=== PATIENT | female | born 2000 | race Caucasian/White ===

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

== ENCOUNTER 2020-01-08 22:20 | Emergency (ER) | payer BC, MEDICAID ==
[2020-01-08 22:32] VITALS: BP 144/89; PULSE 112
--- NOTE | 2020-01-08 22:40 | EDM.PDOC ---
ED HPI GENERAL MEDICAL PROBLEM - General Chief Complaint: ENT Problem Stated Complaint: TEETH PAIN Time Seen by Provider: 01/08/20 22:32 Source of Information: Reports: Patient, RN Notes Reviewed History Limitations: Reports: No Limitations - History of Present Illness INITIAL COMMENTS - FREE TEXT/NARRATIVE: 19-year-old female presents emergency department a complaint of dental pain, she admits to having cavities and poor dentition this particular tooth has been bothering her for the last couple days she has not had any fevers that is making it difficult for her to sleep at eat Right Face/Facial Pain Score (Numeric/FACES): 8 - Related Data Allergies Allergy/AdvReac Type Severity Reaction Status Date / Time doxycycline Allergy Other Verified 08/14/19 21:13 Home Meds: Home Meds Albuterol Sulfate [Proair Hfa] 2 puff IH Q4H PRN 09/15/15 [History] Past Medical History Gastrointestinal History: Reports: Other (See Below) Other Gastrointestinal History: Nausea ulcers Musculoskeletal History: Reports: Fracture Other Musculoskeletal History: Bilateral leg fractures, right ankle fracture, right wrist fracture, right 5th digit fracture Neurological History: Reports: Migraines Psychiatric History: Reports: ADHD, Anxiety, Depression Dermatologic History: Reports: Other (See Below) Other Dermatologic History: skin pigmentation - Past Surgical History GI Surgical History: Reports: EGD Musculoskeletal Surgical History: Reports: None Social & Family History - Tobacco Use Smoking Status *Q: Never Smoker - Caffeine Use Caffeine Use: Reports: Soda ED ROS ENT - Review of Systems Review Of Systems: See Below Constitutional: Denies: Fever, Chills HEENT: Reports: Dental Pain Respiratory: Reports: No Symptoms ED EXAM, ENT - Physical Exam Exam: See Below Text/Narrative:: Mouth mucosa is moist and pink no erythema or exudate known soft palate tongue is midline uvula is midline tooth #31 is severely carried it is tender around that tooth, neck palpation none on appreciate any lymphadenopathy but she does have some tenderness over the jaw near tooth #31 on the right side Exam Limited By: No Limitations General Appearance: Alert, WD/WN, No Apparent Distress Course - Vital Signs Last Recorded V/S: Last Vital Signs Temp 97.6 F 01/08/20 22:30 Pulse 112 H 01/08/20 22:30 Resp 16 01/08/20 22:30 BP 144/89 H 01/08/20 22:30 Pulse Ox 99 01/08/20 22:30 Departure - Departure Time of Disposition: 22:39 Disposition: Home, Self-Care 01 Condition: Fair Clinical Impression: Dental abscess - Discharge Information Instructions: Dental Abscess, [id number] Referrals: PCP,None [Primary Care Provider] - Additional Instructions: Take full course of antibiotics, use Tylenol or Motrin for baseline pain control hydrocodone for breakthrough pain not to exceed 4000 mg Tylenol 24-hour period, please try and find a dentist in town that is doing emergent consultation Sepsis Event Note - Evaluation Sepsis Screening Result: No Definite Risk - Focused Exam Vital Signs: Vital Signs Temp Pulse Resp BP Pulse Ox 01/08/20 22:30 97.6 F 112 H 16 144/89 H 99 Date Exam was Performed: 01/08/20 Time Exam was Performed: 22:37 - Assessment/Plan Plan: Assessment Acuity = acute Site and laterality = dental abscess tooth #31 Etiology = dental caries Manifestations = pain Location of injury = Home Lab values = none Plan Elected to treat empirically amoxicillin 500 mg p.o. 3 times daily x10 days combination with hydrocodone 5/325 1 tab p.o. 3 times daily PRN total #10 she will continue to find a dentist that does have emergency services she can be evaluated This note was dictated using [employer] voice recognition software please call with any questions on syntax or grammar.
== END 2020-01-08 22:44 | disposition home or self-care (01) ==
LOC: JP.ED 22:20
DX: K04.7 Periapical abscess without sinus (principal); K02.9 Dental caries, unspecified; Z88.1 Allergy status to other antibiotic agents
CPT/HCPCS: 99282

== ENCOUNTER 2020-02-04 22:52 | Emergency (ER) | payer MEDICAID ==
[2020-02-04 23:05] VITALS: BP 157/89; PULSE 121
[2020-02-04] MEDS ORDERED: Acetaminophen 325 MG Tab PO ONE (23:14)
[2020-02-04] MEDS ORDERED: Cyclobenzaprine 10 MG Tab PO ONE (23:14)
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
--- NOTE | 2020-02-05 10:12 | CR ---
Shoulder Comp Rt CLINICAL HISTORY: Pain FINDINGS: There is no acute fracture or dislocation in the right shoulder. Articular surfaces are smooth. Impression: Negative
== END 2020-02-04 23:52 | disposition home or self-care (01) ==
LOC: JP.ED 22:52
DX: S43.401A Unspecified sprain of right shoulder joint, initial encounter (principal); F17.210 Nicotine dependence, cigarettes, uncomplicated; Z88.8 Allergy status to other drugs, medicaments and biological substances; Z79.899 Other long term (current) drug therapy; V49.9XXA Car occupant (driver) (passenger) injured in unspecified traffic accident, initial encounter
CPT/HCPCS: 73030; 99283; A9270

== ENCOUNTER 2020-07-12 03:16 | Emergency (ER) | payer MEDICAID ==
[2020-07-12 03:35] VITALS: BP 133/79; PULSE 104
[2020-07-12] MEDS ORDERED: Ondansetron 4 MG Tab.DIS PO ONE (04:04)
--- NOTE | 2020-07-12 04:06 | EDM.PDOC ---
ED HPI GENERAL MEDICAL PROBLEM - General Chief Complaint: Gastrointestinal Problem Stated Complaint: THROWING UP BLOOD Time Seen by Provider: 07/12/20 03:58 Source of Information: Reports: Patient, Family, RN Notes Reviewed History Limitations: Reports: No Limitations - History of Present Illness INITIAL COMMENTS - FREE TEXT/NARRATIVE: 19-year-old female presents emergency department with a complaint of nausea and vomiting, she has a history of peptic ulcer disease she states over the last 24 hours she has had some emesis with bright red blood, she states her last emesis was about an hour ago it has decreased in volume. A couple years ago she had an event similar to this was prescribed an antacid and amitriptyline which she states did help Right Middle Abdomen Pain Score (Numeric/FACES): 10 - Related Data Allergies Allergy/AdvReac Type Severity Reaction Status Date / Time doxycycline Allergy Other Verified 02/04/20 23:03 Home Meds: Home Meds Amitriptyline [Elavil] 10 mg PO BEDTIME #30 tab 07/12/20 [Rx] Ondansetron [Zofran ODT] 4 mg PO Q6H PRN #10 tab.dis 07/12/20 [Rx] Pantoprazole Sodium [Protonix] 20 mg PO DAILY #30 tablet.dr 07/12/20 [Rx] Past Medical History Gastrointestinal History: Reports: Other (See Below) Other Gastrointestinal History: Nausea ulcers Musculoskeletal History: Reports: Fracture Other Musculoskeletal History: Bilateral leg fractures, right ankle fracture, right wrist fracture, right 5th digit fracture Neurological History: Reports: Migraines Psychiatric History: Reports: ADHD, Anxiety, Depression Dermatologic History: Reports: Other (See Below) Other Dermatologic History: skin pigmentation - Past Surgical History GI Surgical History: Reports: EGD Musculoskeletal Surgical History: Reports: None Social & Family History - Tobacco Use Tobacco Use Status *Q: Current Every Day Tobacco User Years of Tobacco use: 3 Packs/Tins Daily: 1 - Caffeine Use Caffeine Use: Reports: None - Recreational Drug Use Recreational Drug Use: No ED ROS GENERAL - Review of Systems Review Of Systems: See Below Constitutional: Reports: No Symptoms Respiratory: Reports: No Symptoms Cardiovascular: Reports: No Symptoms GI/Abdominal: Reports: Abdominal Pain, Hematemesis, Nausea, Vomiting ED EXAM, GI/ABD - Physical Exam Exam: See Below Exam Limited By: No Limitations General Appearance: Alert, WD/WN, No Apparent Distress Respiratory/Chest: No Respiratory Distress, Lungs Clear, Normal Breath Sounds, No Accessory Muscle Use, Chest Non-Tender Cardiovascular: Regular Rate, Rhythm, No Murmur GI/Abdominal Exam: Normal Bowel Sounds, Soft, Non-Tender Course - Vital Signs Last Recorded V/S: Last Vital Signs Temp 98.6 F 07/12/20 03:33 Pulse 104 H 07/12/20 03:33 Resp 16 07/12/20 03:33 BP 133/79 07/12/20 03:33 Pulse Ox 98 07/12/20 03:33 - Orders/Labs/Meds Labs: Laboratory Tests 07/12/20 07/12/20 Range/Units 04:10 04:10 WBC 9.8 (4.5-11.0) K/uL RBC 4.50 (3.30-5.50) M/uL Hgb 13.7 (12.0-15.0) g/dL Hct 40.7 (36.0-48.0) % MCV 90 (80-98) fL MCH 30 (27-31) pg MCHC 34 (32-36) % Plt Count 237 (150-400) K/uL Neut % (Auto) 70 H (36-66) % Lymph % (Auto) 19 L (24-44) % Day % (Auto) 10 H (2-6) % Eos % (Auto) 0 L (2-4) % Baso % (Auto) 0 (0-1) % Sodium 138 L (140-148) mmol/L Potassium 3.5 L (3.6-5.2) mmol/L Chloride 100 (100-108) mmol/L Carbon Dioxide 24 (21-32) mmol/L Anion Gap 17.5 H (5.0-14.0) mmol/L BUN 7 (7-18) mg/dL Creatinine 0.8 (0.6-1.0) mg/dL Est Cr Clr Drug Dosing 105.89 mL/min Estimated GFR (MDRD) > 60 (>60) Glucose 104 (74-106) mg/dL Calcium 9.5 (8.5-10.1) mg/dL Meds: Medications Discontinued Medications Generic Name Dose Route Start Last Admin Trade Name Freq PRN Reason Stop Dose Admin Ondansetron HCl 4 mg 07/12/20 04:04 07/12/20 04:11 Zofran Odt PO 07/12/20 04:05 4 mg ONETIME ONE Administration Departure - Departure Time of Disposition: 04:41 Disposition: Home, Self-Care 01 Condition: Fair Clinical Impression: Hematemesis of unknown cause - Discharge Information Prescriptions: Amitriptyline [Elavil] 10 mg PO BEDTIME #30 tab Pantoprazole Sodium [Protonix] 20 mg PO DAILY #30 tablet. Ondansetron [Zofran ODT] 4 mg PO Q6H PRN #10 tab.dis PRN Reason: Nausea Instructions: Gastrointestinal Bleeding, [id number] Referrals: PCP,None [Primary Care Provider] - Forms: ED Department Discharge Additional Instructions: Try the Zofran as needed for nausea and vomiting symptoms, restart your medications of amitriptyline a prescription is also provided for Protonix which will help suppress the acid in the stomach, recommend follow-up with your primary care in the next 3 to 5 days for reevaluation please consider another EGD for further evaluation, call or return to the emergency department worsening of symptoms Sepsis Event Note (ED) - Evaluation Sepsis Screening Result: No Definite Risk - Focused Exam Vital Signs: Vital Signs Temp Pulse Resp BP Pulse Ox 07/12/20 03:33 98.6 F 104 H 16 133/79 98 - Assessment/Plan Plan: Assessment Acuity = acute Site and laterality = hematoemesis Etiology = probable underlying peptic ulcer disease Manifestations = nausea and vomiting Location of injury = Home Lab values = CBC BMP within normal limits Plan No emesis while in the emergency department prescription written for Zofran ODT 1 tab p.o. 3 times daily as needed total #10, amitriptyline 10 mg p.o. nightly total #30 Protonix 20 mg p.o. daily total #30 her follow-up with her primary care in 3 to 5 days if no improvement This note was dictated using TVTY voice recognition software please call with any questions on syntax or grammar.
== END 2020-07-12 04:47 | disposition home or self-care (01) ==
LOC: JP.ED 03:16
DX: K92.0 Hematemesis (principal); R10.9 Unspecified abdominal pain; F17.210 Nicotine dependence, cigarettes, uncomplicated; Z88.1 Allergy status to other antibiotic agents; Z79.899 Other long term (current) drug therapy
CPT/HCPCS: 36415; 80048; 85025; 99284; A9270

== ENCOUNTER 2020-07-13 15:03 | Emergency (ER) | payer MEDICAID ==
[2020-07-13 16:03] VITALS: BP 122/74; PULSE 78
[2020-07-13] MEDS ORDERED: LORazepam 2 MG/ML SDV IVPUSH ONE (16:37)
[2020-07-13] MEDS ORDERED: Haloperidol Lactate 5 MG/ML SDV IVPUSH ONE (16:37)
--- NOTE | 2020-07-13 16:57 | EDM.PDOC ---
ED HPI GENERAL MEDICAL PROBLEM - General Chief Complaint: Gastrointestinal Problem Stated Complaint: VOMITTING Time Seen by Provider: 07/13/20 16:15 Source of Information: Reports: Patient History Limitations: Reports: No Limitations - History of Present Illness INITIAL COMMENTS - FREE TEXT/NARRATIVE: 19-year-old female who has a long history of recurring nausea and vomiting which was controlled with amitriptyline for a year but she stopped taking it a couple years ago. She was in less than 48 hours ago with persistent vomiting and hematemesis. Her work-up was negative, she responded to some IV medications. She has taken 2 doses of amitriptyline but still is having persistent nausea with occasional emesis. No fevers or chills, some vague upper abdominal discomfort, no radiation to the back. Onset: Sudden (Symptoms started fairly suddenly 3 days ago) Quality: Reports: Ache (Aching in her upper abdomen) Associated Symptoms: Reports: Nausea/Vomiting. Denies: Chest Pain, Cough - Related Data Allergies Allergy/AdvReac Type Severity Reaction Status Date / Time doxycycline Allergy Other Verified 07/13/20 15:51 Home Meds: Home Meds Amitriptyline [Elavil] 10 mg PO BEDTIME #30 tab 07/12/20 [Rx] Ondansetron [Zofran ODT] 4 mg PO Q6H PRN #10 tab.dis 07/12/20 [Rx] Pantoprazole Sodium [Protonix] 20 mg PO DAILY #30 tablet. 07/12/20 [Rx] Past Medical History - Past Health History Medical/Surgical History: Denies Medical/Surgical History Gastrointestinal History: Reports: Other (See Below) Other Gastrointestinal History: Nausea ulcers Musculoskeletal History: Reports: Fracture Other Musculoskeletal History: Bilateral leg fractures, right ankle fracture, right wrist fracture, right 5th digit fracture Neurological History: Reports: Migraines Psychiatric History: Reports: ADHD, Anxiety, Depression Dermatologic History: Reports: Other (See Below) Other Dermatologic History: skin pigmentation - Past Surgical History GI Surgical History: Reports: EGD Musculoskeletal Surgical History: Reports: None Social & Family History - Tobacco Use Tobacco Use Status *Q: Current Every Day Tobacco User Years of Tobacco use: 2 Packs/Tins Daily: 0.5 - Caffeine Use Caffeine Use: Reports: None ED ROS GENERAL - Review of Systems Review Of Systems: See Below Constitutional: Reports: Malaise. Denies: Fever, Chills HEENT: Reports: No Symptoms Respiratory: Denies: Shortness of Breath, Cough Cardiovascular: Denies: Chest Pain GI/Abdominal: Reports: Abdominal Pain (Mild upper abdominal pain), Hematemesis, Nausea, Vomiting. Denies: Constipation, Diarrhea Skin: Reports: No Symptoms Neurological: Denies: Dizziness, Headache Psychiatric: Reports: Anxiety ED EXAM, GI/ABD - Physical Exam Exam: See Below Exam Limited By: No Limitations General Appearance: Alert, No Apparent Distress (Looks uncomfortable but not distressed, not actively vomiting at this time) Eyes: Bilateral: Normal Appearance Head: Atraumatic Respiratory/Chest: No Respiratory Distress, Lungs Clear Cardiovascular: Regular Rate, Rhythm GI/Abdominal Exam: Normal Bowel Sounds, Soft, Other (No significant focal tenderness to palpation) Extremities: Normal Inspection. No: Pedal Edema Neurological: Alert, Oriented Psychiatric: Flat Affect Skin Exam: Warm, Dry Course - Vital Signs Last Recorded V/S: Last Vital Signs Temp 98.4 F 07/13/20 16:00 Pulse 78 07/13/20 16:00 Resp 14 07/13/20 16:00 BP 122/74 07/13/20 16:00 Pulse Ox 98 07/13/20 16:00 - Orders/Labs/Meds Meds: Medications Discontinued Medications Generic Name Dose Route Start Last Admin Trade Name Nay PRN Reason Stop Dose Admin Haloperidol Lactate 2.5 mg 07/13/20 16:37 07/13/20 16:59 Haldol IVPUSH 07/13/20 16:38 2.5 mg ONETIME ONE Administration Lorazepam 0.5 mg 07/13/20 16:37 07/13/20 17:00 Ativan IVPUSH 07/13/20 16:38 0.5 mg ONETIME ONE Administration - Re-Assessments/Exams Free Text/Narrative Re-Assessment/Exam: 07/13/20 17:38 This patient symptoms, especially when reviewed through past medical history combined with her past response to amitriptyline makes her diagnosis likely some type of cyclic vomiting syndrome. She was given 2.5 mg of IV Haldol and 0.5 mg of IV Ativan and felt much better. She was discharged with 10 additional doses of Ativan to use up to 3 times daily until this cycle breaks and her amitriptyline can start working again. She can return anytime if worsening despite treatment. Departure - Departure Time of Disposition: 17:28 Disposition: Home, Self-Care 01 Clinical Impression: Vomiting - Discharge Information Instructions: Nausea and Vomiting, Adult, [id number] Referrals: Walter Hayes MD [Primary Care Provider] - Forms: ED Department Discharge Care Plan Goals: Continue amitriptyline as prescribed, use Ativan every 6-8 hours for persistent nausea over the next 2 to 3 days. Stop Ativan when you are feeling better and increase diet and activity as tolerated. Return to the emergency room if worsening despite treatment. Sepsis Event Note (ED) - Evaluation Sepsis Screening Result: No Definite Risk - Focused Exam Vital Signs: Vital Signs Temp Pulse Resp BP Pulse Ox 07/13/20 16:00 98.4 F 78 14 122/74 98
== END 2020-07-13 17:28 | disposition home or self-care (01) ==
LOC: JP.ED 15:03
DX: R11.2 Nausea with vomiting, unspecified (principal); F32.9 Major depressive disorder, single episode, unspecified; F17.210 Nicotine dependence, cigarettes, uncomplicated; Z79.899 Other long term (current) drug therapy; Z88.1 Allergy status to other antibiotic agents
CPT/HCPCS: 96374; 96375; 99283; J1630; J2060

== ENCOUNTER 2020-12-06 14:04 | Emergency (ER) | payer BC, MEDICAID ==
[2020-12-06 14:46] VITALS: BP 132/62; PULSE 81
[2020-12-06] MEDS ORDERED: Ibuprofen 800 MG Tab PO ONE (15:34)
--- NOTE | 2020-12-06 15:40 | EDM.PDOC ---
ED HPI GENERAL MEDICAL PROBLEM - General Chief Complaint: Lower Extremity Injury/Pain Stated Complaint: RIGHT KNEE PAIN, HIT ON CAR DOOR Time Seen by Provider: 12/06/20 15:05 Source of Information: Reports: Patient History Limitations: Reports: No Limitations - History of Present Illness INITIAL COMMENTS - FREE TEXT/NARRATIVE: patient presents to the ER today due to R-knee pain. she states that she has chronic knee issues and today when getting out of the car she hit her knee on the car door. had initial pain/discomfort and difficulty walking due to pain. states pain is 8-9/10 when walking, at rest now 5/10 described as sharp in nature. she has not taken anything for pain or done any home care measures but came to the ER directly PMH--chronic nausea/GERD Meds--zofran, aciphex Allergies--doxy Tob--former EtOH/Drugs--denies current use LMP--24 November Onset: Today Right Knee Pain Score (Numeric/FACES): 8 - Related Data Allergies Allergy/AdvReac Type Severity Reaction Status Date / Time doxycycline Allergy Other Verified 12/06/20 14:28 Home Meds: Home Meds Amitriptyline [Elavil] 10 mg PO BEDTIME #30 tab 07/12/20 [Rx] Ondansetron [Zofran ODT] 4 mg PO Q6H PRN #10 tab.dis 07/12/20 [Rx] Pantoprazole Sodium [Protonix] 20 mg PO DAILY #30 tablet. 07/12/20 [Rx] Past Medical History - Past Health History Medical/Surgical History: Denies Medical/Surgical History Gastrointestinal History: Reports: Other (See Below) Other Gastrointestinal History: Nausea ulcers Musculoskeletal History: Reports: Fracture Other Musculoskeletal History: Bilateral leg fractures, right ankle fracture, right wrist fracture, right 5th digit fracture Neurological History: Reports: Migraines Psychiatric History: Reports: ADHD, Anxiety, Depression Dermatologic History: Reports: Other (See Below) Other Dermatologic History: skin pigmentation - Infectious Disease History Infectious Disease History: Reports: None - Past Surgical History GI Surgical History: Reports: EGD Musculoskeletal Surgical History: Reports: None Social & Family History - Tobacco Use Tobacco Use Status *Q: Former Tobacco User Years of Tobacco use: 2 Packs/Tins Daily: 0.5 Used Tobacco, but Quit: Yes Month/Year Tobacco Last Used: 1 month ago - Caffeine Use Caffeine Use: Reports: Soda - Recreational Drug Use Recreational Drug Use: No Review of Systems - Review of Systems Review Of Systems: See Below Constitutional: Reports: No Symptoms Eyes: Reports: No Symptoms Ears: Reports: No Symptoms Nose: Reports: No Symptoms Mouth/Throat: Reports: No Symptoms Respiratory: Reports: No Symptoms Cardiovascular: Reports: No Symptoms GI/Abdominal: Reports: No Symptoms Genitourinary: Reports: No Symptoms Musculoskeletal: Reports: Joint Pain (right knee pain--on knee cap) Skin: Reports: No Symptoms Neurological: Reports: No Symptoms Psychiatric: Reports: No Symptoms ED EXAM, GENERAL - Physical Exam Exam: See Below Exam Limited By: No Limitations General Appearance: Alert, WD/WN, No Apparent Distress Eye Exam: Bilateral Eye: EOMI, Normal Inspection, PERRL Ears: Normal External Exam Nose: Normal Inspection Head: Atraumatic, Normocephalic Neck: Normal Inspection, Supple, Non-Tender, Full Range of Motion Respiratory/Chest: No Respiratory Distress, Lungs Clear, Normal Breath Sounds, No Accessory Muscle Use Cardiovascular: Normal Peripheral Pulses, Regular Rate, Rhythm, No Edema, No Murmur Peripheral Pulses: 2+: Posterior Tibial (L), Posterior Tibial (R), Dorsalis Pedis (L), Dorsalis Pedis (R) GI/Abdominal: Normal Bowel Sounds, Soft (Female) Exam: Deferred Rectal (Female) Exam: Deferred Back Exam: Normal Inspection, Full Range of Motion Extremities: Normal Inspection, No Pedal Edema, Normal Capillary Refill, Other (tenderness to anterior right knee; no jointline tenderness/swelling/edema, no sup/inf knee swelling/edema; able to extend/flex right knee without restriction although she states it hurts at end ROM) Neurological: Alert, Oriented, Normal Cognition, No Motor/Sensory Deficits Psychiatric: Normal Affect, Normal Mood Skin Exam: Warm, Dry, Intact, Normal Color Course - Vital Signs Text/Narrative:: 1600--notified by MENTAL HEALTH AIDE that patient is ready to leave, declines x-ray at this time. due to leaving before evaluation complete no work excuse will be provided. must sign out against medical advise Last Recorded V/S: Last Vital Signs Temp 98.2 F 12/06/20 14:29 Pulse 81 12/06/20 14:29 Resp 16 12/06/20 14:29 BP 132/62 12/06/20 14:29 Pulse Ox 98 12/06/20 14:29 - Orders/Labs/Meds Orders: Active Orders 24 hr Category Date Time Status Knee 3V Rt [CR] Stat Exams 12/06/20 15:34 Ordered Meds: Medications Discontinued Medications Generic Name Dose Route Start Last Admin Trade Name Nay PRN Reason Stop Dose Admin Ibuprofen 800 mg 12/06/20 15:34 Ibuprofen 800 Mg Tab PO 12/06/20 15:35 ONETIME ONE Departure - Departure Time of Disposition: 16:01 Disposition: Against Medical Advice 07 Condition: Undetermined Clinical Impression: Right anterior knee pain, Contusion of knee, right, Left against medical advice - Discharge Information *PRESCRIPTION DRUG MONITORING PROGRAM REVIEWED*: Not Applicable *COPY OF PRESCRIPTION DRUG MONITORING REPORT IN PATIENT DAVID: Not Applicable Instructions: Acute Knee Pain, Adult, Contusion, [id number] Referrals: PCP,None [Primary Care Provider] - Forms: ED Department Discharge Additional Instructions: you may use ice or heat (the next 2-3 days ice/cold therapy is recommended) you may keep area elevated to help with any swelling you may use an rosa wrap or knee brace as available over the counter for comfort you may use ibuprofen (Motrin, Advil) or naproxen (Alleve) but not both as per label for any pain/discomfort INSTRUCTIONS WERE NOT PROVIDED PATIENT LEFT BEFORE EVALUATION WAS COMPLETED/AMA Sepsis Event Note (ED) - Evaluation Sepsis Screening Result: No Definite Risk - Focused Exam Vital Signs: Vital Signs Temp Pulse Resp BP Pulse Ox 12/06/20 14:29 98.2 F 81 16 132/62 98 - My Orders Last 24 Hours: My Active Orders 12/06/20 15:34 Knee 3V Rt [CR] Stat - Assessment/Plan Last 24 Hours: My Active Orders 12/06/20 15:34 Knee 3V Rt [CR] Stat
== END 2020-12-06 15:57 | disposition left against medical advice (07) ==
LOC: JP.ED 14:04
DX: S80.01XA Contusion of right knee, initial encounter (principal); K21.9 Gastro-esophageal reflux disease without esophagitis; Z87.891 Personal history of nicotine dependence; Z88.1 Allergy status to other antibiotic agents; Z79.899 Other long term (current) drug therapy; W22.8XXA Striking against or struck by other objects, initial encounter
CPT/HCPCS: 99282; 99283-25

== ENCOUNTER 2022-08-05 02:00 | Emergency (ER) | payer MEDICAID ==
[2022-08-05 02:26] VITALS: BP 122/66; PULSE 91
[2022-08-05] MEDS ORDERED: Ibuprofen 400 MG Tab PO ONE (02:46)
== END 2022-08-05 03:25 | disposition home or self-care (01) ==
LOC: JP.ED 02:00
DX: S06.0X0A Concussion without loss of consciousness, initial encounter (principal); S00.83XA Contusion of other part of head, initial encounter; F17.210 Nicotine dependence, cigarettes, uncomplicated; Z88.1 Allergy status to other antibiotic agents; Y09 Assault by unspecified means
CPT/HCPCS: 70450; 70486; 99284; A9270

== ENCOUNTER 2023-11-27 00:24 | Emergency (ER) | payer MEDICAID ==
[2023-11-27] MEDS: Sodium Chloride 0.9% 1,000 ML IV SCH (01:09)
[2023-11-27 01:10] LABS: BASOPHILS PERCENT AUTO 0.2 % (0.1-1.3); EOSINOPHILS ABSOLUTE AUTO 0.09 K/uL (0.00-0.40); EOSINOPHILS PERCENT AUTO 1.1 % (0.0-5.4); HEMATOCRIT 39.3 % (34.3-46.0); HEMOGLOBIN 13.5 g/dL (11.2-15.5); IMMATURE GRAN PERCENT AUTO 0.2 % (0.0-0.7); LYMPHOCYTES ABSOLUTE AUTO 0.81 K/uL (0.8-3.3); LYMPHOCYTES PERCENT AUTO 9.9 % (11.4-47.7); MEAN CORPUSCULAR HEMOGLOBIN 31.3 pg (31.6-35.5); MEAN CORPUSCULAR HGB CONC 34.4 g/dL (31.6-35.5); MEAN CORPUSCULAR VOLUME 91.2 fL (81.4-99.0); MONOCYTES ABSOLUTE AUTO 0.65 K/uL (0.20-0.90); MONOCYTES PERCENT AUTO 7.9 % (3.3-12.6); NEUTROPHILS ABSOLUTE AUTO 6.61 K/uL (1.0-7.6); NEUTROPHILS PERCENT AUTO 80.7 % (40.0-78.1); PLATELET COUNT,PLT 204 K/uL (130-375); RED BLOOD CELL COUNT 4.31 M/uL (3.77-5.24); WHITE BLOOD CELL COUNT,WBC 8.2 K/uL (3.2-11.0)
[2023-11-27 01:12] LABS: BASOPHILS ABSOLUTE AUTO 0.02 K/uL (0.00-0.10); IMMATURE GRAN ABSOLUTE AUTO 0.02 K/uL (0.00-0.23)
[2023-11-27] MEDS: Ondansetron 4 MG/2 ML SDV IVPUSH ONE (01:14)
[2023-11-27] MEDS: Pantoprazole 40 MG Vial IVPUSH ONE (01:15)
[2023-11-27 01:27] LABS: A/G RATIO 1.4 (1.2-2.2); ALANINE AMINOTRANSFERASE,ALT 19 U/L (12-78); ALBUMIN 4.6 g/dL (3.4-5.0); ALKALINE PHOSPHATASE 66 U/L (46-116); ASPARTATE AMNIOTRANSFERASE,AST 15 U/L (15-37); BILIRUBIN TOTAL 0.5 mg/dL (0.2-1.0); BLOOD UREA NITROGEN,BUN 6 mg/dL (7-18); CALCIUM 9.1 mg/dL (8.5-10.1); CARBON DIOXIDE,CO2 26 mmol/L (21-32); CHLORIDE,CL 103 mmol/L (100-108); CREATININE 0.8 mg/dL (0.6-1.0); EST CRCL DRUG DOSING (CG) 98.41 mL/min; ESTIMATED GFR 106 mL/min (>60); GLUCOSE RANDOM 91 mg/dL (74-106); POTASSIUM,K 3.5 mmol/L (3.6-5.2); SODIUM,NA 142 mmol/L (140-148)
[2023-11-27 01:28] LABS: ANION GAP 16.5 mmol/L (5.0-14.0)
[2023-11-27 02:20] VITALS: BP 103/52; PULSE 82
== END 2023-11-27 02:20 | disposition home or self-care (01) ==
LOC: JP.ED 00:24
DX: K52.9 Noninfective gastroenteritis and colitis, unspecified (principal); K21.9 Gastro-esophageal reflux disease without esophagitis; F17.210 Nicotine dependence, cigarettes, uncomplicated; Z88.8 Allergy status to other drugs, medicaments and biological substances; Z79.899 Other long term (current) drug therapy
CPT/HCPCS: 36415; 80053; 83690; 85025; 96361; 96374; 96375; 99284; C9113; J2405; J7030

== ENCOUNTER 2024-10-06 12:54 | Emergency (ER) | payer MEDICAID ==
[2024-10-06 13:52] VITALS: BP 144/88; PULSE 114
[2024-10-06] MEDS ORDERED: Naloxone 0.4 MG/ML SDV IVPUSH PRN (14:25)
[2024-10-06 14:45] LABS: BASOPHILS PERCENT AUTO 0.2 % (0.1-1.3); EOSINOPHILS ABSOLUTE AUTO 0.06 K/uL (0.00-0.40); EOSINOPHILS PERCENT AUTO 0.5 % (0.0-5.4); HEMATOCRIT 40.4 % (34.3-46.0); HEMOGLOBIN 14.4 g/dL (11.2-15.5); IMMATURE GRAN ABSOLUTE AUTO 0.05 K/uL (0.00-0.23); IMMATURE GRAN PERCENT AUTO 0.4 % (0.0-0.7); LYMPHOCYTES ABSOLUTE AUTO 0.63 K/uL (0.8-3.3); LYMPHOCYTES PERCENT AUTO 5.1 % (11.4-47.7); MEAN CORPUSCULAR HEMOGLOBIN 32.3 pg (31.6-35.5); MEAN CORPUSCULAR HGB CONC 35.6 g/dL (31.6-35.5); MEAN CORPUSCULAR VOLUME 90.6 fL (81.4-99.0); MONOCYTES ABSOLUTE AUTO 0.75 K/uL (0.20-0.90); NEUTROPHILS ABSOLUTE AUTO 10.93 K/uL (1.0-7.6); NEUTROPHILS PERCENT AUTO 87.8 % (40.0-78.1); PLATELET COUNT,PLT 216 K/uL (130-375); RED BLOOD CELL COUNT 4.46 M/uL (3.77-5.24); WHITE BLOOD CELL COUNT,WBC 12.4 K/uL (3.2-11.0)
[2024-10-06 14:47] LABS: BASE EXCESS VENOUS -1.6 mm/L; BICARBONATE,VENOUS 22.4 mmol/L; CARBOXYHEMOGLOBIN 2.4 % (0.0-1.6); METHEMOGLOBIN 1.1 %; O2 SATURATION VENOUS 53.2; OXYHEMOGLOBIN 51.3 %; PCO2 VENOUS 37.5 mm/Hg; PH,VENOUS 7.393 (7.350-7.450)
[2024-10-06] MEDS: HYDROmorphone 0.5 MG/0.5 ML Syringe IVPUSH PRN (14:48)
[2024-10-06] MEDS: Sodium Chloride 0.9% 1,000 ML IV ONE (14:48)
[2024-10-06] MEDS: Prochlorperazine 10 MG/2 ML SDV IVPUSH ONE (14:48)
[2024-10-06 14:49] LABS: BASOPHILS ABSOLUTE AUTO 0.02 K/uL (0.00-0.10)
[2024-10-06 14:50] LABS: PO2 VENOUS 28.9 mm/Hg
[2024-10-06 15:09] LABS: A/G RATIO 1.2 (1.2-2.2); ALANINE AMINOTRANSFERASE,ALT 26 U/L (12-78); ALBUMIN 4.8 g/dL (3.4-5.0); ALKALINE PHOSPHATASE 70 U/L (46-116); ANION GAP 16.8 mmol/L (5.0-14.0); ASPARTATE AMNIOTRANSFERASE,AST 19 U/L (15-37); BILIRUBIN TOTAL 0.6 mg/dL (0.2-1.0); BLOOD UREA NITROGEN,BUN 11 mg/dL (7-18); CALCIUM 9.2 mg/dL (8.5-10.1); CARBON DIOXIDE,CO2 24 mmol/L (21-32); CHLORIDE,CL 101 mmol/L (100-108); CREATININE 0.8 mg/dL (0.6-1.0); EST CRCL DRUG DOSING (CG) 102.39 mL/min; ESTIMATED GFR 106 mL/min (>60); GLUCOSE RANDOM 92 mg/dL (74-106); POTASSIUM,K 3.8 mmol/L (3.6-5.2); PROTEIN TOTAL,TP 8.7 g/dL (6.4-8.2); SODIUM,NA 138 mmol/L (140-148)
[2024-10-06 16:18] LABS: APPEARANCE,URINE SLIGHTLY CLOUDY (CLEAR); BILIRUBIN,URINE NEGATIVE (NEGATIVE); COLOR,URINE YELLOW (YELLOW); GLUCOSE,URINE NEGATIVE (NEGATIVE); KETONES,URINE NEGATIVE (NEGATIVE); LEUKOCYTE ESTERASE,URINE NEGATIVE (NEGATIVE); NITRITE,URINE NEGATIVE (NEGATIVE); OCCULT BLOOD,URINE NEGATIVE (NEGATIVE); PH,URINE 5.5 (5.0-8.0); PROTEIN,URINE TRACE mg/dL (NEGATIVE); UROBILINOGEN,URINE 0.2 EU/dL (0.2-1.0)
[2024-10-06 16:23] LABS: AMPHETAMINES SCREEN, URINE NEGATIVE (NEGATIVE); BARBITURATE SCREEN,URINE NEGATIVE (NEGATIVE); BENZODIAZEPINES SCREEN,URINE NEGATIVE (NEGATIVE); METHADONE SCREEN, URINE NEGATIVE (NEGATIVE); METHAMPHETAMINES SCREEN, URINE NEGATIVE (NEGATIVE); OXYCODONE SCREEN,URINE NEGATIVE (NEGATIVE); PROPOXYPHENE SCREEN,URINE NEGATIVE (NEGATIVE); THC SCREEN,URINE 50 NG/ML PRESUMPTIVE POSITIVE (NEGATIVE)
[2024-10-06 16:29] LABS: AMORPHOUS SEDIMENT,URINE NOT SEEN; BACTERIA,URINE FEW; EPITHELIAL CELLS,URINE FEW; MUCUS,URINE FEW; RBC,URINE 0-5 (0-5); WBC,URINE 0-5 (0-5)
[2024-10-06] MEDS: Sodium Chloride 0.9% 80 ML IV SCH (16:40)
[2024-10-06] MEDS: Iopamidol 612 MG/ML 100 ML Bottle IV SCH (16:40)
[2024-10-06] MEDS: Sodium Chloride 0.9% 10 ML Syringe FLUSH ONE (16:40)
[2024-10-06] MEDS: Ondansetron 4 MG/2 ML SDV IVPUSH ONE (16:59)
== END 2024-10-06 18:06 | disposition home or self-care (01) ==
LOC: JP.ED 12:54
DX: K52.9 Noninfective gastroenteritis and colitis, unspecified (principal); E86.0 Dehydration; Z88.1 Allergy status to other antibiotic agents
CPT/HCPCS: 36415; 74177; 80053; 80305; 80307; 81001; 81025; 82803; 83605; 83690; 84145; 85025; 96361; 96374; 96375; 99284; J0780; J2405; J7030; Q9967